=== PATIENT | female | born 1990 | race African-American/Black ===

== ENCOUNTER 2017-04-10 07:17 | Day surgery (SDC) | payer OTHER ==
[2017-04-09 09:11] VITALS: BMI 31.4
[2017-04-10] MEDS ORDERED: LIDOCAINE HCL 1%, 10 MG/ML (20ML VIAL) ONE (08:25)
[2017-04-10] MEDS ORDERED: DEXAMETHASONE SOD PHOSPHATE 4 MG/1 ML VIAL ONE (08:25)
[2017-04-10] MEDS ORDERED: BUPIVACAINE HCL/PF 0.5% (5MG/ML) 10 ML VIAL ONE (08:25)
[2017-04-10] MEDS ORDERED: MIDAZOLAM HCL 2 MG/2 ML SINGLE DOSE VIAL ONE ×6 (08:46→11:37)
[2017-04-10] MEDS ORDERED: PROPOFOL 20 ML ONE (08:55)
[2017-04-10] MEDS ORDERED: LIDOCAINE HCL/PF 2% SDV 5ML VIAL ONE (08:55)
[2017-04-10] MEDS ORDERED: ceFAZolin SODIUM 1 GM VIAL IVPB ONE (08:59)
[2017-04-10] MEDS ORDERED: BUPIVACAINE HCL/PF 0.5% (5MG/ML) 10 ML VIAL IJ ONE ×3 (09:07→10:39)
[2017-04-10] MEDS ORDERED: LIDOCAINE HCL 1%, 10 MG/ML (20ML VIAL) INF ONE ×2 (09:07→09:27)
[2017-04-10] MEDS ORDERED: DEXAMETHASONE SOD PHOSPHATE 4 MG/1 ML VIAL NR ONE ×2 (09:09→10:39)
[2017-04-10 12:24] VITALS: TEMP 97.8
[2017-04-10 17:28] VITALS: BP 130/70; PULSE 70
--- NOTE | 2017-04-15 15:46 | PATH ---
Surgical Pathology Report Patient Name: KRISTINE LAUGHLIN [facility]. Rec. #: [id number] /Age/Gender: 1990 (Age: 26) / F Account: [id number] Location: [facility] SURGICAL Taken: 04/10/2017 Received: 04/10/2017 Reported: 04/15/2017 Physicians: Harshad Pagan DPM Specimen(s) Received SKIN AND BONE RIGHT FOOT Clinical History Right foot bunion, right fifth hammertoe Final Diagnosis SKIN AND BONE, RIGHT FOOT, BUNIONECTOMY: FRAGMENTS OF BONE, CARTILAGE AND SKIN WITH NO PATHOLOGIC FINDINGS. Electronically Signed Camila Lundberg M.D. Gross Description Received in formalin labeled "skin, bone right foot," is a 2.5 x 2.4 x 0.3 cm aggregate of marks skin, soft tissue and bone fragments. Optical Glass Inspector sections are submitted in one cassette, following decalcification. 04/13/2017 saudi04/13/2017
--- NOTE | 2017-04-20 09:39 | OP ---
DATE OF OPERATION: 04/10/2017 PREOPERATIVE DIAGNOSIS: Tailor bunion, right foot, and 5th hammer toe, right foot. POSTOPERATIVE DIAGNOSIS: Tailor bunion, right foot, and 5th hammer toe, right foot. PROCEDURES: 1. Masood bunionectomy with screw fixation, right foot. 2. Tailor bunionectomy, right foot. 3. Fifth digit arthroplasty of the right foot. ANESTHESIA: MAC with local infiltrate. HEMOSTASIS: Ankle tourniquet at 250 mmHg. ESTIMATED BLOOD LOSS: Minimal. SURGEON: Harshad Pagan DPM TUBE BENDER: Solomon Durand DPM, and DESCRIPTION OF PROCEDURE: The patient was brought to the operating room and placed in a supine position on the table. After adequate IV sedation, a local infiltrative block was administered using 1:1 mix of 1% lidocaine plain and 0.5% Marcaine plain with a total of 20 mL used. The right foot was then prepped and draped in the usual aseptic fashion. Upon exsanguination of the right foot with Esmarch bandage and placement of padding at the ankle, the pneumatic ankle tourniquet was inflated to 250 mmHg. Attention was then directed to the dorsal medial aspect of the 4th metatarsal of the right foot. A linear incision was made in the dorsal medial aspect of the 1st metatarsophalangeal joint. The incision was deepened through subcutaneous tissue using sharp and blunt dissection. Care was taken to identify and retract all vital neural and vascular structures. All bleeders were cauterized as necessary. Next, a linear capsulotomy was performed of the dorsal medial aspect of the 1st metatarsophalangeal joint of the right foot. The periosteal and capsular structures were then carefully dissected free of the osseous attachments and reflected medially and laterally exposing the head of the 1st metatarsal of the operative site. Next, the sagittal bone saw was used to resect the medial prominence and pulled from the operative field. A [id number] V-type osteotomy was performed using the sagittal saw on the 1st metatarsal head medial aspect. Upon completion of the osteotomy, the capital fragment was distracted and shifted laterally into a more corrected position and impacted upon the 1st metatarsal shaft. Next, using standard AO principles and technique, a 14-mm x 2.4 screw was driven across the osteotomy site with excellent compression noted. The remaining medial bone shelf was resected using the bone saw and from the operative site. All rough edges and prominences were then smoothed using a bur. Correction of the deformity was assessed at this time and noted to be adequate. The surgical site was then irrigated with normal saline solution. The medial capsule was reapproximated with 3-0 Vicryl in simple suture fashion. The subcutaneous tissue was reapproximated with 4-0 Vicryl in simple suture, and the skin was reapproximated with 4-0 nylon. Attention was then directed to the dorsolateral aspect of the 5th metatarsal head of the right foot where a linear incision was made over the deformity. The incision was carried down to the subcutaneous tissue identifying and retracting any vital neurovascular structures. Incision was carried down to the bone where the head of the 5th metatarsal and was noted to be hypertrophied on the lateral aspect. The sagittal saw was then used to the lateral prominence. The surgical site was then irrigated with normal saline solution. The capsule was then closed using 3-0 Vicryl, and subcutaneous tissue was reapproximated using 4-0 Vicryl. The skin was closed using 4-0 nylon. Attention was then directed to the 5th digit of the right foot where 2 converging semielliptical incisions were made dorsal to the PIPJ and oblique orientation. Ellipsed portion of the removed skin was taken from the operative field. The incision was deepened through subcutaneous tissue with care being taken to identify and retract all vital neurovascular structures. All bleeders were cauterized and ligated. At this time, a transverse tenotomy and capsulotomy was performed to the proximal interphalangeal joint of the right 5th digit. The head of the proximal phalanx was then freed of its capsular and ligamentous attachments. The head was hypertrophied on its dorsal, medial, and lateral aspect. Next, using an operating bone saw, the head of the proximal phalanx was resected and passed from the operative site. The wound was flushed with normal saline solution. The extensor tendon was then reapproximated using 3-0 Vicryl. The skin was closed using 4-0 nylon in simple suture technique. All surgical sites were then infiltrated with 3 mL of dexamethasone and 0.5% Marcaine plain. The incision sites were dressed with Betadine, Adaptic, and sterile compressive dressing consisting of 4 x 4, Malaika, and Anshu. Pneumatic ankle tourniquet was deflated, and a prompt hyperemic response was noted to all digits of the right foot. The patient tolerated the procedure and the anesthesia well and the left the operating room to the recovery room in good condition with vital signs stable and neurovascular status intact. SAURABH Tate/[id number]
== END 2017-04-10 17:28 | disposition home or self-care (01) ==
LOC: JASU-SURG 07:17
PROVIDERS: ATTEND Podiatrist Foot Surgery
PROC: 0QBQ0ZZ Excision of Right Toe Phalanx, Open Approach (ICD-10-PCS; principal; 2017-04-10 08:00)
PROC: 0SRP0JZ Replacement of Right Toe Phalangeal Joint with Synthetic Substitute, Open Approach (ICD-10-PCS; 2017-04-10 08:00)
DX: M20.41 Other hammer toe(s) (acquired), right foot (principal); M21.621 Bunionette of right foot
CPT/HCPCS: 73630-TC-RT; 84703; 88304-TC; 88311-TC; 94760

== ENCOUNTER 2017-04-24 06:36 | Day surgery (SDC) | payer OTHER ==
[2017-04-23 09:05] VITALS: BMI 31.4
[2017-04-24] MEDS ORDERED: ONDANSETRON 4 MG/2 ML VIAL IVPUSH PRN (08:35)
[2017-04-24] MEDS ORDERED: DEXAMETHASONE SOD PHOSPHATE 4 MG/1 ML VIAL ONE ×2 (08:39→09:13)
[2017-04-24] MEDS ORDERED: LIDOCAINE HCL 1%, 10 MG/ML (20ML VIAL) ONE (08:39)
[2017-04-24] MEDS ORDERED: BUPIVACAINE HCL/PF 0.5% (5MG/ML) 10 ML VIAL ONE (08:39)
[2017-04-24] MEDS ORDERED: LACTATED RINGERS SOLUTION 1,000 ML IV SCH (08:45)
[2017-04-24] MEDS ORDERED: MIDAZOLAM HCL 2 MG/2 ML SINGLE DOSE VIAL ONE (08:49)
[2017-04-24] MEDS ORDERED: PROPOFOL 20 ML ONE (09:09)
[2017-04-24] MEDS ORDERED: LIDOCAINE HCL/PF 2% SDV 5ML VIAL ONE (09:13)
[2017-04-24] MEDS ORDERED: KETOROLAC TROMETHAMINE 30 MG/1 ML VIAL ONE (09:13)
[2017-04-24] MEDS ORDERED: ceFAZolin SODIUM 1 GM VIAL IVPB ONE (09:30)
[2017-04-24] MEDS ORDERED: ceFAZolin SODIUM 1 GM VIAL ONE (09:34)
[2017-04-24] MEDS ORDERED: LIDOCAINE HCL 1%, 10 MG/ML (20ML VIAL) INF ONE (09:52)
[2017-04-24] MEDS ORDERED: BUPIVACAINE HCL/PF 0.5% (5MG/ML) 10 ML VIAL IJ ONE (09:53)
[2017-04-24] MEDS ORDERED: BACITRACIN 50,000 UNITS VIAL TP ONE (09:55)
[2017-04-24] MEDS ORDERED: ROCURONIUM BROMIDE 50 MG/5 ML VIAL ONE (10:36)
[2017-04-24 11:44] VITALS: TEMP 98.8
[2017-04-24 13:12] VITALS: BP 142/81; PULSE 79
--- NOTE | 2017-04-25 14:35 | OP ---
DATE OF OPERATION: 04/24/2017 SURGEON: Harshad Pagan DPM ASSISTANTS: 1. Adonay Snider DPM 2. Josselin Rahman PREOPERATIVE DIAGNOSIS: Tailor's bunion of the 5th metatarsal, left foot. POSTOPERATIVE DIAGNOSIS: Tailor's bunion of the 5th metatarsal, left foot. ANESTHESIA: IV MAC with local infiltrative block. ESTIMATED BLOOD LOSS: 2 mL. INJECTABLES: Total 15 mL preoperatively lidocaine 1% plain and Marcaine 0.5% plain, 1:1 mixture. DESCRIPTION: The patient was brought to the operating room and placed on the operating room table in the supine position. After adequate IV sedation, a local infiltrative block consisting of a 1:1 mix of 1% lidocaine plain and 0.5% Marcaine plain was administered to the left foot. Attention was then directed to right foot where nylon sutures were removed from the 5th digit under monitored anesthesia care. The left foot was then prepped and draped in the usual aseptic fashion. Upon exsanguination of the left with an Esmarch bandage and placement of padding at the ankle, the pneumatic ankle tourniquet was inflated to 250 mmHg. Surgery began in the following manner. Attention was first directed to the dorsal aspect of the 5th metatarsal head where a 3-cm linear longitudinal incision was made directly over the tailor's bunion deformity of the 5th metatarsal. The incision was carried down through subcutaneous tissue, being careful to identify and retract any vital neuro or vascular structures. The incision was carried down to bone, where the head of the 5th metatarsal was noted to be hypertrophied on its lateral and dorsal aspects. The oscillating saw was then used to remove both the lateral and dorsal prominences. All bony prominences were then smoothed using a power bur. The deformity was assessed at this time and noted to be excellent. The surgical site was then irrigated with copious amounts of normal saline solution. The joint capsule and subcutaneous tissues were then closed utilizing 4-0 Vicryl, and the skin was closed utilizing 5-0 Vicryl in continuous buried suture technique. The surgical site was then dressed with Betadine, Adaptic, 4 x 4 gauze, and Malaika and Anshu wrap. The patient tolerated the above surgical procedure well and anesthesia well and left the operating room to the recovery room with vascular status intact to the left foot. The patient was instructed to limit activity for the next several days until followup, and also to ice and elevate and take pain medication as prescribed. The patient is to follow up with Dr. Pagan for redressing and inspection of the surgical site. SAURABH Tate/[id number]
--- NOTE | 2017-04-27 16:53 | PATH ---
Surgical Pathology Report Patient Name: KRISTINE LAUGHLIN [facility]. Rec. #: [id number] /Age/Gender: 1990 (Age: 26) / F Account: [id number] Location: [facility] SURGICAL Taken: 04/24/2017 Received: 04/24/2017 Reported: 04/27/2017 Physicians: Harshad Pagan DPM Specimen(s) Received LEFT FIFTH METATARSAL BONE Clinical History Left foot bunion Final Diagnosis METATARSAL BONE, FIFTH, LEFT, EXCISION: BONE AND CARTILAGE WITH DEGENERATIVE CHANGES. Electronically Signed Kaitlin Caballero M.D. Gross Description Received in formalin labeled "left fifth metatarsal bone," is a 1.3 x 1.1 x 0.2 cm aggregate of marks bone fragments. The specimen is submitted in toto in one cassette, following decalcification. /04/24/201704/24/2017
== END 2017-04-24 13:15 | disposition home or self-care (01) ==
LOC: JASU-SURG 06:36
PROVIDERS: ATTEND Podiatrist Foot Surgery
PROC: 0QBP0ZZ Excision of Left Metatarsal, Open Approach (ICD-10-PCS; principal; 2017-04-24 08:30)
DX: M21.622 Bunionette of left foot (principal)
CPT/HCPCS: 73630-TC-LT; 84703; 88304-TC; 88311-TC; 94760